=== PATIENT | female | born 1975 | race Caucasian/White ===

== ENCOUNTER 2019-01-21 06:06 | Emergency (ER) | payer SELFPAY ==
[~2019-01-21] VITALS: Ht 162.6 cm; Wt 61.2 kg
[2019-01-21 06:12] VITALS: BP 116/67
== END 2019-01-21 06:53 | disposition left against medical advice (07) ==
LOC: ER 06:08
DX: R51 Headache (principal); Z53.21 Procedure and treatment not carried out due to patient leaving prior to being seen by health care provider

== ENCOUNTER 2019-03-18 11:26 | Emergency (ER) | payer MEDICAID ==
[~2019-03-18] VITALS: Ht 165.1 cm; Wt 61.2 kg
[2019-03-18 12:50] VITALS: BP 107/65
== END 2019-03-18 14:12 | disposition home or self-care (01) ==
LOC: ER 11:26
DX: G50.0 Trigeminal neuralgia (principal)